=== PATIENT | female | born 1980 | race Caucasian/White ===

== ENCOUNTER → 2018-07-27 | Outpatient (CLI) | payer MEDICARE, MEDICAID ==
--- NOTE | 2018-07-27 11:57 | RADIOLOGY IMAGING REPORT ---
FACILITY: [facility] - [place] PATIENT NAME: Xochilt Peña : 1980 MR: [id number] V: [id number] EXAM DATE: ORDERING PHYSICIAN: VIOLET STOUT TECHNOLOGIST: Location: [facility] - [place] Patient: Xochilt Peña : 1980 Visit/Account:[id number] Date of Sevice: 07/27/2018 Exam type: KNEE LIMITED LEFT History: Fell 2 weeks ago, left knee pain Comparison: None. Findings: There is a bony fragment projecting just inferior to the left patella however the margins are smooth. 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 There is a smal l amount of soft tissue swelling about the left knee. There is mild narrowing of the medial compartm ent and mild degenerative changes at the patellofemoral joint IMPRESSION: 1. Mild soft tissue swelling about the left knee Mild narrowing of the medial compartment Probable bipartite patella Report Dictated By: Niesha Cotton MD at 07/27/2018 11:51 AM Report E-Signed By: Niesha Cotton MD at 07/27/2018 11:52 AM WSN:[email or web address]
== END ==
LOC: RAD 10:40
PROVIDERS: ATTEND Nurse Practitioner Family
DX: M25.562 Pain in left knee (principal)